=== PATIENT | male | born 1950 | race Caucasian/White ===

== ENCOUNTER 2019-10-19 10:47 | Observation (INO) ==
[2019-10-19] MEDS ORDERED: SODIUM CHLORIDE 0.9% 1000ML 1,000 ML IV ONE (11:55)
[2019-10-19 12:00] LABS: Basophils # (auto) 0.01 K/uL (0-0.2); Basophils % (auto) 0.2 %; Eosinophils # (auto) 0.04 K/uL (0-0.5); Eosinophils % (auto) 0.6 %; Hematocrit (blood only) 35.8 % (42-52); Hemoglobin 12.1 g/dL (14.0-18.0); Immature Granulocytes # (auto) 0.01 K/uL (0.00-0.02); Immature Granulocytes % (auto) 0.2 %; Lymphocytes % (auto) 15.3 %; Mean Corpuscular Hemoglobin 31.8 pg (25-34); Mean Corpuscular Hgb Conc 33.8 g/dL (32-36); Mean Platelet Volume 10.7 fL (7.4-10.4); Monocytes # (auto) 0.52 K/uL (0.11-0.59); Neutrophils # (auto) 4.96 K/uL (1.4-6.5); Neutrophils % (auto) 75.7 %; Platelet Count 164 K/uL (130-400); RDW Coefficient of Variation 13.6 % (11.5-14.5); RDW Standard Deviation 46.6 fL (36.4-46.3); Red Blood Count 3.81 M/uL (4.7-6.1); White Blood Count 6.54 K/uL (4.8-10.8)
[2019-10-19 12:17] LABS: INR 3.4 (0.9-1.1); Partial Thromboplastin Ratio 1.5; Prothrombin Time 33.6 Seconds (9.0-12.0)
[2019-10-19 12:29] LABS: Albumin Level 3.8 gm/dl (3.4-5.0); BUN Creatinine Ratio 22.5 (10-20); Est GFR (African American) 79.2; Est GFR (Non-African American) 68.3; Magnesium 2.1 mg/dl (1.8-2.4); Potassium 4.3 mmol/L (3.5-5.1)
[2019-10-19 12:39] LABS: Bilirubin,Total 0.4 mg/dl (0.2-1); Globulin 3.7 gm/dl (2.5-4.0); Thyroid Stimulating Hormone 7.83 uIu/ml (0.300-4.500); Total Protein 7.5 gm/dl (6.4-8.2)
[2019-10-19 13:22] LABS: Phosphorus 3.1 mg/dl (2.5-4.9); Troponin I < 0.015 ng/ml (0-0.045)
[2019-10-19 13:42] LABS: Appearance Urine Clear (Clear); Bilirubin Urine Negative (Negative); Blood Urine Negative (Negative); Color Urine Yellow; Glucose Urine UA Negative (Negative); Ketones Urine Negative (Negative); Leukocyte Esterase Urine Negative (Negative); Nitrite Urine Negative (Negative); Protein Urine Negative (Negative); Specific Gravity Urine 1.015 (1.000-1.030); Urobilinogen Urine Negative (Negative)
--- NOTE | 2019-10-19 14:06 | Electrocardiogram Report ---
Test Reason : Blood Pressure : / mmHG Vent. Rate : 062 BPM Atrial Rate : 062 BPM P-R Int : 170 ms QRS Dur : 092 ms QT Int : 386 ms P-R-T Axes : 065 057 035 degrees QTc Int : 391 ms Normal sinus rhythm Normal ECG When compared with ECG of 12-NOV-2011 13:51, No significant change was found Confirmed by Dio Hand ([id number]) on 10/19/2019 2:05:35 PM Referred By: Confirmed By:Dio Hand
--- NOTE | 2019-10-19 15:40 | History & Physical Report ---
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 -Completed Lovenox bridge, currently on Coumadin with INR 3.4 -Obtain CT results from [place] (3) CAD (coronary artery disease): -Appears stable, no reports of chest pain -Continue aspirin and beta-bob (4) HTN (hypertension): -BP controlled, continue quinapril, diltiazem, carvedilol (5) Hypothyroidism: -TSH 7.8, free T4 1.0 -Continue levothyroxine (6) Diet-controlled type 2 diabetes mellitus: -Hgb A1c 6.5 03/2019 (7) DVT prophylaxis: -On Coumadin with therapeutic INR History of Present Illness Chief Complaint: Near syncope Primary Care Provider: Ariel Millard MD 69-year-old male with PMH diet-controlled DM, dyslipidemia, CAD, HTN, IVC thrombosis, and other problems to below who presents the ED evaluation near syncope. Patient reports he was standing at work when suddenly everything started to go black. 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 He had another similar episode a few minutes later. Patient did not lose consciousness or fall to the ground. Patient denies associated chest pain or shortness of breath. On 10/05, patient had a routine echo ordered by cardiology that showed evidence of IVC thrombosis. Patient was started on Lovenox to Coumadin bridge. Patient reports he had a CT scan for follow-up however these results not available. Patient reports he otherwise has been feeling well recently. Denies any other recent illnesses, fevers, chills. No abdominal pain, nausea, vomiting, diarrhea. He denies any urinary symptoms. In the ED, telemetry monitoring showed some occasional PVCs. Labs are unremarkable. EKG does not show any acute ST changes. Patient was given IVF. Allergies Allergy/AdvReac Type Severity Reaction Status Date / Time No Known Allergies Allergy Unknown Verified 10/19/19 11:55 Home Medications Home Medications Medication Instructions Recorded Confirmed Type ascorbic acid (vitamin C) [Vitamin 1 g PO DAILY 10/19/19 10/19/19 History C] aspirin 81 mg PO DAILY 10/19/19 10/19/19 History buspirone 10 mg PO BID 10/19/19 10/19/19 History calcium carbonate-vitamin D3 1 tab PO DAILY 10/19/19 10/19/19 History [Os-Rafael 500 + D3] carvedilol 12.5 mg PO BID 10/19/19 10/19/19 History cyanocobalamin (vitamin B-12) 1,000 mcg PO DAILY 10/19/19 10/19/19 History [Vitamin B-12] diltiazem HCl 240 mg PO DAILY 10/19/19 10/19/19 History levothyroxine 100 mcg PO DAILY 10/19/19 10/19/19 History quinapril 40 mg PO DAILY 10/19/19 10/19/19 History warfarin 7.5 mg PO DAILY 10/19/19 10/19/19 History Past Med/Surg History Medical History (Updated 10/19/19 @ 15:38 by IAN Thao) CAD (coronary artery disease) 02/2014-[facility]REGORY to RCA Depression Diet-controlled type 2 diabetes mellitus Dyslipidemia Femur fracture History of bilateral stress femur fractures HTN (hypertension) Hypothyroidism IVC thrombosis Renal artery stenosis Surgical History H/O arthroscopy of shoulder Family History Mother Lung cancer Father Hypertension Social History Preferred Language: Surinamese Communication Ability: Effective Flat Optical Element Maker Required: No Beliefs That Will Affect Care: None Current Living Situation: Spouse and Family Feels Safe at Home: Yes Safety Concerns: Feels Safe At This Time Smoking Status: Never smoker Tobacco Type: smokeless tobacco ; Do You Dip or Chew Tobacco: Yes (2 cans/week) ; Hx Alcohol Use: Yes Alcohol type: beer Review of Systems Review of Systems: ROS per HPI, all other systems reviewed and negative Physical Exam Constitutional: WD/WN, vitals as above Eyes: PERRL, conjunctivae normal, anicteric sclerae ENMT: external ear and nose normal, oropharynx normal Respiratory: normal respiratory effort, lungs clear to auscultation Cardiovascular: Rate/Rhythm: regular rate and regular rhythm Vessels: normal peripheral pulses Extremities: no edema Gastrointestinal (Abdomen): normal bowel sounds, soft, nontender, no hepatosplenomegaly Musculoskeletal: no cyanosis or clubbing, extremities motor strength 5/5 Skin: no rashes, warm and dry Neurologic: PERRL, EOMI, accommodation nl, no face palsy, no dysarthria Psychiatric: A+Ox3, euthymic affect Results & Data Results & Data ([facility] [place]) Vital Signs (Past 12 Hours) Vital Signs Temp Pulse Resp BP Pulse Ox 10/19/19 12:38 59 L 17 127/75 98 10/19/19 12:00 98 10/19/19 11:29 71 12 117/69 98 10/19/19 11:18 36.8 C 75 18 118/78 96 Laboratory Results Short CBC 10/19/19 Range/Units 11:39 WBC 6.54 (4.8-10.8) K/uL Hgb 12.1 L (14.0-18.0) g/dL Hct 35.8 L (42-52) % Plt Count 164 (130-400) K/uL BMP 10/19/19 11:39 Sodium 137 Potassium 4.3 Chloride 104 Carbon Dioxide 27 BUN 25 H Creatinine 1.11 Glucose 105 H Calcium 9.0 Cardiac Enzymes 10/19/19 Range/Units 11:39 Troponin I < 0.015 (0-0.045) ng/ml Liver Function 10/19/19 Range/Units 11:39 Total Bilirubin 0.4 (0.2-1) mg/dl AST 18 (15-37) U/L ALT 50 (12-78) U/L Alkaline Phosphatase 57 (45-117) U/L Albumin 3.8 (3.4-5.0) gm/dl Urine 10/19/19 Range/Units 13:25 Urine Color Yellow Urine Appearance Clear (Clear) Urine pH 6.0 (4.5-7.5) Ur Specific [place] 1.015 (1.000-1.030) Urine Protein Negative (Negative) Urine Glucose (UA) Negative (Negative) Code Status & VTE Plan Code Status Patient is a full code as per my discussion with him. 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 INR therapeutic Came to ER with complaint of 2 episodes of dizzy spell lightheadedness presyncope Symptom lasted only for few seconds, then recovered completely, no loss of consciousness, patient denies of any shortness of breath chest heaviness or palpitation prior to that Physical exam: As per Chela SOSA Assessment and plan: Pre-syncope: Etiology unknown Patient will be monitored in telemetry to rule out arrhythmia Recent echocardiogram done-we will obtain report from [facility]ology IVC/inferior vena cava thrombus: Had echocardiogram done on 10/06/2019 with incidental finding of inferior vena cava thrombus And was treated with Coumadin and Lovenox bridge, has taken off Lovenox bridge on Coumadin only as INR is therapeutic INR 3.4 today Denies of any abdominal pain, no bleeding complication from therapeutic anticoagulation Patient had a CT abdomen pelvis with contrast at [facility] for evaluation of IVC (inferior vena cava thrombosis) Ordered to obtain records Please refer to further documentation by Chela SOSA for discussion of other chronic issues
[2019-10-19] MEDS ORDERED: ACETAMINOPHEN 325 MG TAB PO PRN (16:25)
--- NOTE | 2019-10-19 17:07 | Emergency Department Note ---
Impression & Plan Near syncope, NSVT (nonsustained ventricular tachycardia), CAD (coronary artery disease), On warfarin therapy ED Provider Note NAME: EVELINA ESPARZA AGE: 69 SEX: M ARRIVES VIA: Walk-In INFORMANT: Patient, ED PROVIDER(S): Jose L Hart MD CHIEF COMPLAINT: Near syncope PLAN: Disposition: Admit MEDICAL DECISION MAKING: The patient is a pleasant 69 y/o gentleman with a pmhx of CAD, HTN, hypothyroidism, IVC thrombosis on Coumadin who presents to the emergency department with two episodes of near syncope, which occurred shortly prior to arrival. 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 A second episode occurred and he was encouraged to come for evaluation. He denies prior similar episodes. Reports feeling well prior to today and denies chest pain, shortness of breath, fevers, chills, cough, congestion, n/v/d, urinary sx. On arrival the patient is in NAD, AFVSS. He appears clinically dry. He is neurologically intact. EKG without overt acute ischemia. WBC and platelets wnl. H/H 12.1/35.8 without recent values for comparison. Chemistry without acidosis. BUN/Cr > 20 c/w patient's clinically dry appearance. LFTs and electrolytes unremarkable. Troponin negative/undetectable. While the patient's near syncopal episode suggest vasovagal/orthostatic etiology, during his evaluation he did have an an episode of of 3 beat NSVT. Thus, given this in the setting of two near syncopal episodes, reasonable to a dmit for further management. Patient is agree with this. [facility] for [facility]. Triage Nursing notes reviewed and agree them. Prior medical records reviewed Vital Signs: reviewed and remarkable for no significant abnormalities Differential diagnosis: Vasovagal event, dehydration, infection, hypoglycemia, electrolyte abnormalities, cardiac sources, intracerebral event, pulmonary embolism, seizure, toxicologic, neurologic, as well as other pathologies. ER treatment provided: See below. Diagnostics interpreted by me: ECG: NSR, 62 bpm, no ectopy, no overt ST elevation or depression, QTC 391, QRS 92 Cardiac Monitoring: An order for continuous cardiac monitoring was placed and demonstrated NSR, 62 bpm, 3 beat NSVT x 1 Laboratory studies: See below Imaging studies: See below Consultation(s): Case was discussed with Dr. Orozco, [facility] hospitalist, who will evaluate the patient for admission. HPI: The patient is a pleasant 69 y/o gentleman with a pmhx of CAD, HTN, hypothyroidism, who presents to the emergency department with two episodes of near syncope, which occurred shortly prior to arrival. 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 A second episode occurred and he was encouraged to come for evaluation. He denies prior similar episodes. Reports feeling well prior to today and denies chest pain, shortness of breath, fevers, chills, cough, congestion, n/v/d, urinary sx. ROS: See above HPI for pertinent positives & negatives. A total of 10 systems reviewed and were otherwise negative. PAST MEDICAL HISTORY:See Below PAST SURGICAL HISTORY:See Below FAMILY HISTORY:See Below SOCIAL HISTORY:See Below HOME MEDICATIONS:See Below ALLERGIES:See Below VITALS:See Below PHYSICAL EXAMINATION: GENERAL: Awake, alert, fatigued-appearing, in no distress HENT: Normocephalic, atraumatic. Oropharynx with dry mucous membranes and otherwise unremarkable. EYES: Normal conjunctiva. Sclera non-icteric. EOMI. No nystamgus. PEARRL. NECK: Supple. No nuchal rigidity. FROM. No JVD. RESPIRATORY: Clear to auscultation. CARDIAC: Regular rate, normal rhythm. Extremities warm and well perfused. Pulses equal. ABDOMEN: Soft, non-distended. No tenderness to palpation. No rebound or guarding. No masses. RECTAL: Deferred. MUSCULOSKELETAL: Chest examination reveals no tenderness. The back is symmetrical on inspection without obvious abnormality. There is no CVA tenderness to palpation. No joint edema. LOWER EXTREMITIES: Calves are equal size bilaterally and non-tender. No edema. No discoloration. NEURO: Normal sensorium. No sensory or motor deficits noted. 5/5 strength and SILT x 4 extremities. Cerebellar function intact including [id number], alternating palms, [id number]. SKIN: No rash or jaundice noted. Jose L Hart MD Past Med/Surg History Medical History CAD (coronary artery disease) 02/2014-[facility] to RCA Depression Diet-controlled type 2 diabetes mellitus Dyslipidemia Femur fracture History of bilateral stress femur fractures HTN (hypertension) Hypothyroidism IVC thrombosis Renal artery stenosis Surgical History H/O arthroscopy of shoulder Family History Mother Lung cancer Father Hypertension Social History Preferred Language: Turkish Communication Ability: Effective Line Inspector Required: No Beliefs That Will Affect Care: None Current Living Situation: Spouse and Family Feels Safe at Home: Yes Safety Concerns: Feels Safe At This Time Smoking Status: Never smoker Tobacco Type: smokeless tobacco ; Do You Dip or Chew Tobacco: Yes (2 cans/week) ; Hx Alcohol Use: Yes Alcohol type: beer Allergies Allergies Allergy/AdvReac Type Severity Reaction Status Date / Time No Known Allergies Allergy Unknown Verified 10/19/19 11:55 Home Meds Home Medications Medication Instructions Recorded Confirmed ascorbic acid (vitamin C) [Vitamin 1 g PO DAILY 10/19/19 10/19/19 C] aspirin 81 mg PO DAILY 10/19/19 10/19/19 buspirone 10 mg PO BID 10/19/19 10/19/19 calcium carbonate-vitamin D3 1 tab PO DAILY 10/19/19 10/19/19 [Os-Rafael 500 + D3] carvedilol 12.5 mg PO BID 10/19/19 10/19/19 cyanocobalamin (vitamin B-12) 1,000 mcg PO DAILY 10/19/19 10/19/19 [Vitamin B-12] diltiazem HCl 240 mg PO DAILY 10/19/19 10/19/19 levothyroxine 100 mcg PO DAILY 10/19/19 10/19/19 quinapril 40 mg PO DAILY 10/19/19 10/19/19 warfarin 7.5 mg PO DAILY 10/19/19 10/19/19 Results & Data (ED) Vital Signs Vital Signs - 24 hr 10/19/19 11:18 10/19/19 11:29 10/19/19 11:31 Temperature 36.8 C Temperature Source Oral Pulse Rate - Lying 59 L Pulse Rate - Sitting 70 Pulse Rate - Standing 76 Pulse Rate 75 71 Pulse Rate from SpO2 Sensor 74 Respiratory Rate 18 12 Respiratory Effort / Characteristics Non-Labored Spontaneous Respiratory Depth Normal Respiratory Pattern Regular Blood Pressure - Lying 118/67 Blood Pressure - Sitting 117/69 Blood Pressure- Standing 108/68 Blood Pressure 118/78 117/69 Blood Pressure Mean 91 75 Blood Pressure Position Sitting Pulse Oximetry 96 98 Oxygen Delivery Method Room Air Room Air Sepsis Recent Fever Within 48 Hours No Sepsis New/Unexplained Change in Mental Status No Sepsis Action Taken by Nursing No Action Required 10/19/19 12:00 10/19/19 12:38 Temperature Temperature Source Pulse Rate - Lying Pulse Rate - Sitting Pulse Rate - Standing Pulse Rate 59 L Pulse Rate from SpO2 Sensor 59 L Respiratory Rate 17 Respiratory Effort / Characteristics Respiratory Depth Respiratory Pattern Blood Pressure - Lying Blood Pressure - Sitting Blood Pressure- Standing Blood Pressure 127/75 Blood Pressure Mean 95 Blood Pressure Position Pulse Oximetry 98 98 Oxygen Delivery Method Room Air Room Air Sepsis Recent Fever Within 48 Hours Sepsis New/Unexplained Change in Mental Status Sepsis Action Taken by Nursing Laboratory Data Attestation: I reviewed the patient's lab results. Result diagrams: 10/19/19 11:39 10/19/19 11:39 Lab Results 10/19/19 10/19/19 10/19/19 Range/Units 11:39 11:39 11:39 WBC 6.54 (4.8-10.8) K/uL RBC 3.81 L (4.7-6.1) M/uL Hgb 12.1 L (14.0-18.0) g/dL Hct 35.8 L (42-52) % MCV 94.0 (80-100) fL MCH 31.8 (25-34) pg MCHC 33.8 (32-36) g/dL RDW Std Deviation 46.6 H (36.4-46.3) fL RDW Coeff of Amado 13.6 (11.5-14.5) % Plt Count 164 (130-400) K/uL MPV 10.7 H (7.4-10.4) fL Immature Gran % (Auto) 0.2 % Neut % (Auto) 75.7 % Lymph % (Auto) 15.3 % Villalba % (Auto) 8.0 % Eos % (Auto) 0.6 % Baso % (Auto) 0.2 % Neut # (Auto) 4.96 (1.4-6.5) K/uL Lymph # (Auto) 1.00 L (1.2-3.4) K/uL Villalba # (Auto) 0.52 (0.11-0.59) K/uL Eos # (Auto) 0.04 (0-0.5) K/uL Baso # (Auto) 0.01 (0-0.2) K/uL Immature Gran # (Auto) 0.01 (0.00-0.02) K/uL PT 33.6 H (9.0-12.0) Seconds INR 3.4 H (0.9-1.1) APTT 41.0 H (21.0-31.0) Seconds PTT Ratio 1.5 Sodium 137 (136-145) mmol/L Potassium 4.3 (3.5-5.1) mmol/L Chloride 104 (98-107) mmol/L Carbon Dioxide 27 (21-32) mmol/L Anion Gap 6.0 (3-11) BUN 25 H (7-18) mg/dl Creatinine 1.11 (0.6-1.4) mg/dl Est Cr Clr Drug Dosing 75.0 ml/min Est GFR ( Amer) 79.2 Est GFR (Non-Af Amer) 68.3 BUN/Creatinine Ratio 22.5 H (10-20) Glucose 105 H (70-99) mg/dl Calcium 9.0 (8.5-10.1) mg/dl Phosphorus Magnesium 2.1 (1.8-2.4) mg/dl Total Bilirubin 0.4 (0.2-1) mg/dl AST 18 (15-37) U/L ALT 50 (12-78) U/L Alkaline Phosphatase 57 (45-117) U/L Troponin I (0-0.045) ng/ml Total Protein 7.5 (6.4-8.2) gm/dl Albumin 3.8 (3.4-5.0) gm/dl Globulin 3.7 (2.5-4.0) gm/dl Albumin/Globulin Ratio 1.0 (0.9-2) TSH 7.830 H (0.300-4.500) uIu/ml Free T4 1.00 (0.8-1.6) ng/dl Urine Color Urine Appearance (Clear) Urine pH (4.5-7.5) Ur Specific [place] (1.000-1.030) Urine Protein (Negative) Urine Glucose (UA) (Negative) Urine Ketones (Negative) Urine Blood (Negative) Urine Nitrite (Negative) Urine Bilirubin (Negative) Urine Urobilinogen (Negative) Ur Leukocyte Esterase (Negative) Hepatitis C Ab Screen (Neg) 10/19/19 10/19/19 10/19/19 Range/Units 11:39 11:39 11:39 WBC (4.8-10.8) K/uL RBC (4.7-6.1) M/uL Hgb (14.0-18.0) g/dL Hct (42-52) % MCV (80-100) fL MCH (25-34) pg MCHC (32-36) g/dL RDW Std Deviation (36.4-46.3) fL RDW Coeff of Amado (11.5-14.5) % Plt Count (130-400) K/uL MPV (7.4-10.4) fL Immature Gran % (Auto) % Neut % (Auto) % Lymph % (Auto) % Villalba % (Auto) % Eos % (Auto) % Baso % (Auto) % Neut # (Auto) (1.4-6.5) K/uL Lymph # (Auto) (1.2-3.4) K/uL [place] # (Auto) (0.11-0.59) K/uL Eos # (Auto) (0-0.5) K/uL Baso # (Auto) (0-0.2) K/uL Immature Gran # (Auto) (0.00-0.02) K/uL PT (9.0-12.0) Seconds INR (0.9-1.1) APTT (21.0-31.0) Seconds PTT Ratio Sodium (136-145) mmol/L Potassium (3.5-5.1) mmol/L Chloride (98-107) mmol/L Carbon Dioxide (21-32) mmol/L Anion Gap (3-11) BUN (7-18) mg/dl Creatinine (0.6-1.4) mg/dl Est Cr Clr Drug Dosing ml/min Est GFR ( Amer) Est GFR (Non-Af Amer) BUN/Creatinine Ratio (10-20) Glucose (70-99) mg/dl Calcium (8.5-10.1) mg/dl Phosphorus Cancelled 3.1 Magnesium (1.8-2.4) mg/dl Total Bilirubin (0.2-1) mg/dl AST (15-37) U/L ALT (12-78) U/L Alkaline Phosphatase (45-117) U/L Troponin I < 0.015 (0-0.045) ng/ml Total Protein (6.4-8.2) gm/dl Albumin (3.4-5.0) gm/dl Globulin (2.5-4.0) gm/dl Albumin/Globulin Ratio (0.9-2) TSH (0.300-4.500) uIu/ml Free T4 (0.8-1.6) ng/dl Urine Color Urine Appearance (Clear) Urine pH (4.5-7.5) Ur Specific [place] (1.000-1.030) Urine Protein (Negative) Urine Glucose (UA) (Negative) Urine Ketones (Negative) Urine Blood (Negative) Urine Nitrite (Negative) Urine Bilirubin (Negative) Urine Urobilinogen (Negative) Ur Leukocyte Esterase (Negative) Hepatitis C Ab Screen Neg (Neg) 10/19/19 Range/Units 13:25 WBC (4.8-10.8) K/uL RBC (4.7-6.1) M/uL Hgb (14.0-18.0) g/dL Hct (42-52) % MCV (80-100) fL MCH (25-34) pg MCHC (32-36) g/dL RDW Std Deviation (36.4-46.3) fL RDW Coeff of Amado (11.5-14.5) % Plt Count (130-400) K/uL MPV (7.4-10.4) fL Immature Gran % (Auto) % Neut % (Auto) % Lymph % (Auto) % Villal[place] % (Auto) % Eos % (Auto) % Baso % (Auto) % Neut # (Auto) (1.4-6.5) K/uL Lymph # (Auto) (1.2-3.4) K/uL [place] # (Auto) (0.11-0.59) K/uL Eos # (Auto) (0-0.5) K/uL Baso # (Auto) (0-0.2) K/uL Immature Gran # (Auto) (0.00-0.02) K/uL PT (9.0-12.0) Seconds INR (0.9-1.1) APTT (21.0-31.0) Seconds PTT Ratio Sodium (136-145) mmol/L Potassium (3.5-5.1) mmol/L Chloride (98-107) mmol/L Carbon Dioxide (21-32) mmol/L Anion Gap (3-11) BUN (7-18) mg/dl Creatinine (0.6-1.4) mg/dl Est Cr Clr Drug Dosing ml/min Est GFR ( Amer) Est GFR (Non-Af Amer) BUN/Creatinine Ratio (10-20) Glucose (70-99) mg/dl Calcium (8.5-10.1) mg/dl Phosphorus Magnesium (1.8-2.4) mg/dl Total Bilirubin (0.2-1) mg/dl AST (15-37) U/L ALT (12-78) U/L Alkaline Phosphatase (45-117) U/L Troponin I (0-0.045) ng/ml Total Protein (6.4-8.2) gm/dl Albumin (3.4-5.0) gm/dl Globulin (2.5-4.0) gm/dl Albumin/Globulin Ratio (0.9-2) TSH (0.300-4.500) uIu/ml Free T4 (0.8-1.6) ng/dl Urine Color Yellow Urine Appearance Clear (Clear) Urine pH 6.0 (4.5-7.5) Ur Specific [place] 1.015 (1.000-1.030) Urine Protein Negative (Negative) Urine Glucose (UA) Negative (Negative) Urine Ketones Negative (Negative) Urine Blood Negative (Negative) Urine Nitrite Negative (Negative) Urine Bilirubin Negative (Negative) Urine Urobilinogen Negative (Negative) Ur Leukocyte Esterase Negative (Negative) Hepatitis C Ab Screen (Neg) Administered Medications Buspirone HCl (Buspar) 10 mg PO BID ROLANDO Stop: 11/18/19 20:59 Last Admin: 10/19/19 20:47 Dose: 10 mg Documented by: [id number] Carvedilol (Coreg) 12.5 mg PO BID ROLANDO Stop: 11/18/19 20:59 Last Admin: 10/19/19 20:46 Dose: 12.5 mg Documented by: [id number] Discontinued Medications Sodium Chloride (Nss 1000ml) 1,000 mls @ 999 mls/hr IV .[id number] ONE Stop: 10/19/19 12:55 Last Infusion: 10/19/19 13:24 Dose: 0 mls/hr Documented by: [id number] Admin: 10/19/19 12:36 Dose: 999 mls/hr Documented by: [id number] Blood Pressure Blood Pressure Findings: Normal blood pressure Discharge Plan Visit Data *Final* Discharge Date/Time: 10/19/19 16:03 Chief Complaint: Syncope (Near Syncope) Stated Complaint: ALMOST PASSED OUT TWICE, NOT FEELING WELL ED Provider: Jose L Hart Discharge Problem: Near syncope, NSVT (nonsustained ventricular tachycardia), CAD (coronary artery disease), On warfarin therapy Patient Disposition: Admitted As Inpatient Discharge Instructions Interventions: ED Discharge Assessment Last Done: 10/19/19 16:03
[2019-10-19] MEDS: carvediloL 12.5 MG TAB PO SCH (20:46)
[2019-10-20] MEDS ORDERED: LEVOTHYROXINE SODIUM 100 MCG TABLET PO SCH (06:30)
[2019-10-20 06:31] LABS: Hematocrit (blood only) 36.6 % (42-52); Hemoglobin 11.6 g/dL (14.0-18.0); Mean Corpuscular Hemoglobin 30.5 pg (25-34); Mean Corpuscular Hgb Conc 31.7 g/dL (32-36); Mean Corpuscular Volume 96.3 fL (80-100); Mean Platelet Volume 10.4 fL (7.4-10.4); Platelet Count 162 K/uL (130-400); RDW Coefficient of Variation 13.5 % (11.5-14.5); RDW Standard Deviation 47.5 fL (36.4-46.3); White Blood Count 5.05 K/uL (4.8-10.8)
[2019-10-20 06:49] LABS: INR 3.6 (0.9-1.1); Prothrombin Time 35.9 Seconds (9.0-12.0)
[2019-10-20 07:09] LABS: Calcium 8.7 mg/dl (8.5-10.1); Creatinine Clr Calc Pharmacy 73.5 ml/min; Est GFR (African American) 77.5; Est GFR (Non-African American) 66.9; Potassium 3.9 mmol/L (3.5-5.1)
[2019-10-20] MEDS ORDERED: ASPIRIN 81 MG ECTAB PO SCH (09:00)
[2019-10-20] MEDS ORDERED: ENALAPRIL MALEATE 10 MG TAB PO SCH (09:00)
[2019-10-20] MEDS ORDERED: dilTIAZem HCL 240 MG CAPCR PO SCH (09:00)
[2019-10-20] MEDS: carvediloL 12.5 MG TAB PO SCH (09:06)
--- NOTE | 2019-10-20 09:41 | Hospitalist Progress Note ---
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 No loss of consciousness -as per 10/19/2019 admitting notes "In the ED, patient had some occasional PVCs noted on monitoring and evaluation advisor, Initial troponin negative, EKG without acute ST changes, Patient is hemodynamically stable, Recent echo on : EF 55 to 60%, mild tricuspid regurgitation, evidence of IVC thrombosis -Overall patient had 3 negative troponins. He reported felt better by 1 PM yesterday while in the hospital. 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 patient is recommended to hold coumadin on 10/20/2019. Discharge with coumadin dosing reduced from 7.5 mg daily to be used as 7 mg daily starting on 10/21/2019. Medication [place] [address] [id number] upcoming appointments 10/21/2019 8:30 AM Provider Taylor Warner [facility] Department Pharmacy, [facility] 10/27/2019 11:[address] Irving Isabel Department Internal Medicine [facility] 11/07/2019 9:30 AM Provider Sarah Rodriguez PA-C Department Internal Medicine [facility] 12/19/2019 7:30 AM Provider Kimberley Arellano PA-C Department Rheumatology [facility] 08/07/2020 9:00 AM Provider IAN Davies Department Pulmonary Medicine, [facility] Discharge Diagnosis Near syncope IVC thrombosis Anticoagulated by coumadin therapy with supratherapeutic INR HTN (hypertension) History of Coronary artery Disease Admission and Anticipated Discharge Date Admission Date: October 19, 2019 Subjective -Overall patient had 3 negative troponins. He reported felt better by 1 PM yesterday while in the hospital. No acute telemetry events on medical telemetry other than some asymptomatic sinus bradycardia no chest pain. no shortness of breath. no dizziness. no headache. ambulating. no abdomen pain. no nausea. no vomiting Review of Systems Review of Systems: All systems reviewed & are unremarkable except as noted in Subjective Physical Exam Constitutional: WD/WN, vitals as above Eyes: PERRL, conjunctivae normal, anicteric sclerae EOM intact bilaterally ENMT: external ear and nose normal, oropharynx normal Neck: trachea midline, no thyromegaly normal visual inspection Respiratory: normal respiratory effort, lungs clear to auscultation normal respiratory effort Cardiovascular: Rate/Rhythm: regular rhythm and + bradycardic Gastrointestinal (Abdomen): normal bowel sounds, soft, nontender, no hepatosplenomegaly Musculoskeletal: Head/Neck/Chest: normocephalic and head atraumatic Neurologic: PERRL, EOMI, accommodation nl, no face palsy, no dysarthria CN's II-XI intact bilaterally Psychiatric: A+Ox3, euthymic affect Results & Data Results & Data ([facility]) Vital Signs (Past 12 Hours) Vital Signs Temp Pulse Pulse Resp BP Pulse Ox 10/20/19 06:38 36.8 C 64 17 121/79 100 10/20/19 03:54 36.5 C 67 19 120/75 96 10/20/19 00:34 56 L 10/19/19 23:29 36.5 C 56 L 19 104/64 97
--- NOTE | 2019-10-20 09:47 | Discharge Summary ---
Date of Service October 20, 2019 Admission HPI Per Admitting Provider 69-year-old male with PMH diet-controlled DM, dyslipidemia, CAD, HTN, IVC thrombosis, and other problems to below who presents the ED evaluation near syncope. Patient reports he was standing at work when suddenly everything started to go black. 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 He had another similar episode a few minutes later. Patient did not lose consciousness or fall to the ground. Patient denies associated chest pain or shortness of breath. On 10/05, patient had a routine echo ordered by cardiology that showed evidence of IVC thrombosis. Patient was started on Lovenox to Coumadin bridge. Patient reports he had a CT scan for follow-up however these results not available. Patient reports he otherwise has been feeling well recently. Denies any other recent illnesses, fevers, chills. No abdominal pain, nausea, vomiting, diarrhea. He denies any urinary symptoms. In the ED, telemetry monitoring showed some occasional PVCs. Labs are unremarkable. EKG does not show any acute ST changes. Patient was given IVF. Principal Diagnosis Near syncope IVC thrombosis Anticoagulated by coumadin therapy with supratherapeutic INR HTN (hypertension) History of Coronary artery Disease Discharge Exam Constitutional WD/WN, vitals as above Eyes PERRL, conjunctivae normal, anicteric sclerae EOM intact bilaterally ENMT external ear and nose normal, oropharynx normal Neck trachea midline, no thyromegaly normal visual inspection Respiratory normal respiratory effort, lungs clear to auscultation normal respiratory effort Cardiovascular Rate/Rhythm: regular rhythm and + bradycardic Gastrointestinal (Abdomen) normal bowel sounds, soft, nontender, no hepatosplenomegaly Musculoskeletal Head/Neck/Chest: normocephalic and head atraumatic Neurologic PERRL, EOMI, accommodation nl, no face palsy, no dysarthria CN's II-XI intact bilaterally Psychiatric A+Ox3, euthymic affect Discharge Data Allergies Allergy/AdvReac Type Severity Reaction Status Date / Time No Known Allergies Allergy Unknown Verified 10/19/19 11:55 Consultations 10/19/19 14:17 ED Decision to Admit Stat Hospital Course (1) Near syncope: -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 No loss of consciousness -as per 10/19/2019 admitting notes "In the ED, patient had some occasional PVCs noted on monitoring coordinator, Initial troponin negative, EKG without acute ST changes, Patient is hemodynamically stable, Recent echo on : EF 55 to 60%, mild tricuspid regurgitation, evidence of IVC thrombosis -Overall patient had 3 negative troponins. He reported felt better by 1 PM yesterday while in the hospital. 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 at [place] -Completed Lovenox bridge prior to this hospitalization and currently on coumadin alone for treatment of preventing more thrombosis (3) CAD (coronary artery disease): -Appears stable, no reports of chest pain -Continue aspirin and beta-bob (4) HTN (hypertension): -BP controlled, continue quinapril, diltiazem, carvedilol (5) Hypothyroidism: -TSH 7.8, free T4 1.0 -Continue levothyroxine (6) Diet-controlled type 2 diabetes mellitus: -Hgb A1c 6.5 03/2019 (7) DVT prophylaxis: Anticoagulated by coumadin therapy with supratherapeutic INR -admission INR 3.2 on 10/19/2019, INR is 3.6 on 10/20/2019. patient is recommended to hold coumadin on 10/20/2019. Discharge with coumadin dosing reduced from 7.5 mg daily to be used as 7 mg daily starting on 10/21/2019. Medication change sent electronically to [address], [place] [id number] upcoming appointments 10/21/2019 8:30 AM Provider [facility] Department Pharmacy, [facility] 10/27/2019 11:[address] Irving Isabel Department Internal Medicine [place] 11/07/2019 9:30 AM Provider Sarah Rodriguez PA-C Department Internal Medicine [place] 12/19/2019 7:30 AM Provider Kimberley Arellano PA-C Department Rheumatology [place] 08/07/2020 9:00 AM Provider IAN Davies Department Pulmonary Medicine, [facility] Discharge Diagnosis Near syncope IVC thrombosis Anticoagulated by coumadin therapy with supratherapeutic INR HTN (hypertension) History of Coronary artery Disease Total Time Total Time Spent Total Time Spent (In Minutes): 40 minutes Total Time Includes: Examination of the Patient, Discharge Planning, Medication Reconciliation and Communication With Other Providers Discharge Plan Discharge Items Patient Disposition: Home - Self-Care Reason For Visit: NEAR SYNCOPE Discharge Diagnosis: Near syncope IVC thrombosis Anticoagulated by coumadin therapy with supratherapeutic INR HTN (hypertension) History of Coronary artery Disease Condition on Discharge: Good Activity: Resume your previous activity Non-emergency contact: Primary Care Provider Call non-emergency contact if: you have any medication questions Follow-up/Referrals: Ariel Millard MD [Primary Care Provider] - Diet: Heart Healthy Addtl Attending Provider Instructions: admission INR 3.2 on 10/19/2019, INR is 3.6 on 10/20/2019. patient is recommended to hold coumadin on 10/20/2019. Discharge with coumadin dosing reduced from 7.5 mg daily to be used as 7 mg daily starting on 10/21/2019. Med[address], [place] [id number] upcoming appointments 10/21/2019 8:30 AM Provider [facility] Timmy Kaiser [facility] Department Pharmacy, [facility] 10/27/2019 11:[address] Irving Isabel Department Internal Medicine [place] 11/07/2019 9:30 AM Provider Sarah Rodriguez PA-C Department Internal Medicine [place] 12/19/2019 7:30 AM Provider Kmiberley Arellano PA-C Department Rheumatology [place] 08/07/2020 9:00 AM Provider IAN Davies Department Pulmonary Medicine, [facility] Pending Studies at Discharge: No Stand-Alone Forms: My [employer]folio, Smoking Cessation Medications and DC Order Prescriptions: New warfarin 4 mg tablet 7 mg PO DAILY 30 Days Qty: 52.5 RF: 0 Continued ascorbic acid (vitamin C) [Vitamin C] 1,000 mg Tablet 1 g PO DAILY RF: 0 carvedilol 12.5 mg tablet 12.5 mg PO BID RF: 0 diltiazem HCl 240 mg capsule,extended release 24hr 240 mg PO DAILY RF: 0 cyanocobalamin (vitamin B-12) [Vitamin B-12] 1,000 mcg Tablet 1,000 mcg PO DAILY RF: 0 aspirin 81 mg Tablet,Delayed Release (Dr/Ec) 81 mg PO DAILY RF: 0 quinapril 40 mg tablet 40 mg PO DAILY RF: 0 buspirone 10 mg tablet 10 mg PO BID RF: 0 calcium carbonate-vitamin D3 [Os-Rafael 500 + D3] 500 mg(1,250mg) -200 unit Tablet 1 tab PO DAILY RF: 0 levothyroxine 100 mcg tablet 100 mcg PO DAILY RF: 0 Discontinued warfarin 5 mg tablet 7.5 mg PO DAILY RF: 0 Discharge Orders: Discharge Order (Routine); Ordered 10/20/19 Ordered By: Griffin Herron Admission Data Admit Date/Time: 10/19/19 14:41 Attending Provider: Griffin Herron Admit Provider: Rocio Orozco Primary Care Provider: Ariel Millard Other Providers: Rocio Orozco
[2019-10-20] MEDS ORDERED: WARFARIN SOD 7.5 MG TAB PO SCH (16:00)
--- NOTE | 2019-10-20 21:40 | Electrocardiogram Report ---
Test Reason : Blood Pressure : / mmHG Vent. Rate : 059 BPM Atrial Rate : 059 BPM P-R Int : 186 ms QRS Dur : 094 ms QT Int : 412 ms P-R-T Axes : 073 072 053 degrees QTc Int : 407 ms Sinus bradycardia Otherwise normal ECG When compared with ECG of 19-OCT-2019 11:26, No significant change was found Confirmed by Anuj Garcia ([id number]) on 10/20/2019 9:40:11 PM Referred By: REFERRED SELF Confirmed By:Anuj Garcia
== END 2019-10-20 12:15 | disposition home or self-care (01) ==
LOC: 2W 10:47 → ED 10:47 → SUATTDRO 14:41 → 2W 16:03

== ENCOUNTER 2020-02-02 05:18 | Inpatient (IN) ==
--- NOTE | 2020-01-16 12:47 | PAT Medication Instructions ---
Medication Instructions Date of Service January 16, 2020 Home Medications ascorbic acid (vitamin C) [Vitamin C] 1 g PO QAM aspirin 81 mg PO QAM buspirone 10 mg PO BID calcium carbonate-vitamin D3 [Os-Rafael 500 + D3] 1 tab PO QAM carvedilol 12.5 mg PO BID cyanocobalamin (vitamin B-12) [Vitamin B-12] 1,000 mcg PO QAM diltiazem HCl 240 mg PO QAM levothyroxine 100 mcg PO QAM quinapril 40 mg PO QAM warfarin 7.5 mg PO 3XWK warfarin 10 mg PO 4XWK ASK your prescriber and surgeon aspirin 81 mg PO QAM warfarin 7.5 mg PO 3XWK warfarin 10 mg PO 4XWK DO NOT take the morning of surgery ascorbic acid (vitamin C) [Vitamin C] 1 g PO QAM calcium carbonate-vitamin D3 [Os-Rafael 500 + D3] 1 tab PO QAM cyanocobalamin (vitamin B-12) [Vitamin B-12] 1,000 mcg PO QAM quinapril 40 mg PO QAM Take morning of surgery With a small sip of water, OTHERWISE NOTHING TO EAT OR DRINK AFTER MIDNIGHT: buspirone 10 mg PO BID carvedilol 12.5 mg PO BID diltiazem HCl 240 mg PO QAM levothyroxine 100 mcg PO QAM Take evening before surgery buspirone 10 mg PO BID carvedilol 12.5 mg PO BID Other Notes If you have any questions please call us at [phone] or [phone] or [phone] or [phone]
--- NOTE | 2020-01-17 15:41 | Anesthesiology Consultation ---
Date of Service January 17, 2020 Assessment & Plan (1) Encounter for pre-operative examination: - Awaiting most recent cardiology office visit note ([facility]). - Per assessment on 01/16: Travel screen- Lives in [place]. Works in [employer]. Patient states that he will be traveling with family to [place] 01/20. Patient states that he will strictly follow COVID precaution guidelines, wear mask, + social distance, avoid large crowds. He states that he will contact surgeon's office if unable to follow COVID precaution guidelines during travel. No known COVID-19 positive contacts or current COVID-19 related symptoms. Surgeon arranging preop COVID testing. Awaiting results. - Check coags AM DOS Chart Review Chart Review: Patient seen in Pre Admission Testing Teaching & Discussion Pre-Anesthesia Teaching/Discussion Notes: Instructed NPO after midnight before surgery,except medications with 15 cc of water. Medication instructions provided according to the PAT guidelines. History Surgery Operation Date: 02/02/20 07:30 Proposed Procedures p Robotic Left Laparoscopic Partial Nephrectomy, Possible Radical Left Nephrectomy - Valentín Zuñiga DO Height/Weight Height: 5 ft 11 in Weight: 97.5 kg Allergies Allergy/AdvReac Type Severity Reaction Status Date / Time No Known Allergies Allergy Unknown Verified 01/16/20 11:58 Medications Home Medications Medication Instructions Recorded Confirmed Last Taken ascorbic acid (vitamin C) [Vitamin 1 g PO QAM 10/19/19 01/16/20 Unknown C] aspirin 81 mg PO QAM 10/19/19 01/16/20 Unknown buspirone 10 mg PO BID 10/19/19 01/16/20 Unknown calcium carbonate-vitamin D3 1 tab PO QAM 10/19/19 01/16/20 Unknown [Os-Rafael 500 + D3] carvedilol 12.5 mg PO BID 10/19/19 01/16/20 Unknown cyanocobalamin (vitamin B-12) 1,000 mcg PO QAM 10/19/19 01/16/20 Unknown [Vitamin B-12] diltiazem HCl 240 mg PO QAM 10/19/19 01/16/20 Unknown levothyroxine 100 mcg PO QAM 10/19/19 01/16/20 Unknown quinapril 40 mg PO QAM 10/19/19 01/16/20 Unknown warfarin 7.5 mg PO 3XWK 01/16/20 01/16/20 Unknown warfarin 10 mg PO 4XWK 01/16/20 01/16/20 Unknown Past Medical History Medical History (Updated 01/17/20 @ 16:11 by Augusta Barth) Anxiety and depression CAD (coronary artery disease) 02/2014-[facility] to RCA Dyslipidemia History of asthma as child History of thrombosis of vena cava IVC thombosis- on warfarin HTN (hypertension) Hx of lymphoma Hx of testicular cancer Hypothyroidism Migraine Myocardial Infarction 2013 Osteoarthritis Prediabetes Renal artery stenosis Renal cyst left Sleep apnea CPAP Exercise / Class Metabolic Activity II 4-5 Yardwork/Stairs/Walk up hill (one flight of stairs (no chest pain, no sob)) Past Family History Family History Mother Lung cancer Father Hypertension Past Surgical History Surgical History (Updated 01/17/20 @ 16:00 by Augusta Barth) H/O arthroscopy of shoulder right H/O hand surgery right hand (3rd/4th digit) partial amputation History of cataract surgery R/T History of colonoscopy History of heart artery stent stent x1 (2013) History of open reduction and internal fixation (ORIF) procedure R/L FEMUR History of orchiectomy LEFT Past Anesthesia History No Hx of Anesthesia Complications and No Family Hx of Anesthesia Complications History of PONV No Hx of PONV and Hx of Motion Sickness (+ boats/fishing) Social History Smoking Status: Never smoker tobacco type: smokeless tobacco Do You Dip or Chew Tobacco: Yes (1 can/week- advised NPO AM DOS) Hx Alcohol Use: Yes Alcohol type: beer alcohol intake frequency: holidays/special occasions only Hx Substance Use: No substance use type: does not use Review of Systems Patient denies chest pain, shortness of breath, dyspnea on exertion, fever, chills, cough, wheezing, palpitations. Physical Exam Vital Signs VITALS BP 142/83 P 57 TEMP 98.0 SP02 95%RA RESP 16 PHYSICAL Full neck and c-spine range of motion. Full TMJ range of motion. TMD 3 finger breaths Mallampati Score 2 Dentition: several missing (sides/molars) Lungs: clear throughout to auscultation Cardiac: regular rate and rhythm, no murmurs noted Spine: normal Carotid arteries: negative bruit Extremities: 3rd/4th digit right hand partial amputation Testing Laboratory Results 01/17/20 15:57 01/17/20 15:57 Urine Color Yellow 01/17/20 15:57 Urine Appearance Clear (Clear) 01/17/20 15:57 Urine pH 6.0 (4.5-7.5) 01/17/20 15:57 Ur Specific [place] 1.011 (1.000-1.030) 01/17/20 15:57 Urine Protein Negative (Negative) 01/17/20 15:57 Urine Glucose (UA) Negative (Negative) 01/17/20 15:57 Urine Ketones Negative (Negative) 01/17/20 15:57 Urine Nitrite Negative (Negative) 01/17/20 15:57 Ur Leukocyte Esterase Negative (Negative) 01/17/20 15:57 Blood Type O Positive 01/17/20 15:57 Antibody Screen NEGATIVE 01/17/20 15:57 Electrocardiogram Date: 10/20/19 Findings: + SB @ (59) Echocardiogram Date: 10/06/19 EF 55-60%. No RWMA. Mild TR. ECHO density within the IVC adjacent the hepatic vein that does not appear to be artifact, possible thrombus versus mass. Other Testing Chest CTA: 05/03/19: No evidence of aortic dissection or aneurysm. Normal pulmonary artery segments. Cardiomegaly without CHF. 2 minor old compression fractures of the T-spine. No acute pathology of the chest.
[2020-01-17 16:30] LABS: Basophils # (auto) 0.02 K/uL (0-0.2); Basophils % (auto) 0.3 %; Eosinophils # (auto) 0.05 K/uL (0-0.5); Eosinophils % (auto) 0.8 %; Hematocrit (blood only) 38.8 % (42-52); Hemoglobin 12.5 g/dL (14.0-18.0); Lymphocytes # (auto) 1.48 K/uL (1.2-3.4); Lymphocytes % (auto) 24.5 %; Mean Corpuscular Hemoglobin 30.7 pg (25-34); Mean Corpuscular Hgb Conc 32.2 g/dL (32-36); Mean Corpuscular Volume 95.3 fL (80-100); Mean Platelet Volume 10.4 fL (7.4-10.4); Monocytes # (auto) 0.41 K/uL (0.11-0.59); Monocytes % (auto) 6.8 %; Neutrophils # (auto) 4.09 K/uL (1.4-6.5); Neutrophils % (auto) 67.6 %; Platelet Count 184 K/uL (130-400); RDW Coefficient of Variation 12.7 % (11.5-14.5); RDW Standard Deviation 44.1 fL (36.4-46.3); Red Blood Count 4.07 M/uL (4.7-6.1); White Blood Count 6.05 K/uL (4.8-10.8)
[2020-01-17 16:38] LABS: BUN Creatinine Ratio 14.3 (10-20); Calcium 9.5 mg/dl (8.5-10.1); Creatinine Clr Calc Pharmacy 66.7 ml/min; Est GFR (African American) 66.7; Est GFR (Non-African American) 57.5; Potassium 4.4 mmol/L (3.5-5.1)
[2020-01-17 18:55] LABS: Appearance Urine Clear (Clear); Bilirubin Urine Negative (Negative); Blood Urine Negative (Negative); Color Urine Yellow; Glucose Urine UA Negative (Negative); Ketones Urine Negative (Negative); Leukocyte Esterase Urine Negative (Negative); Nitrite Urine Negative (Negative); Protein Urine Negative (Negative); Specific Gravity Urine 1.011 (1.000-1.030); Urobilinogen Urine Negative (Negative)
[2020-01-27 21:28] LABS: SARS CoV2 RNA (COVID-19) NOT DETECTED (NOT DETECTED)
[2020-02-02] MEDS ORDERED: ceFAZolin 2000MG 2,000 MG/15 ML SYR IV SCH (06:00)
[2020-02-02] MEDS ORDERED: LR 15ML/HR IV SCH ×2 (06:00)
[2020-02-02] MEDS ORDERED: HEPARIN SOD 5,000 UNIT/0.5 ML VIAL SQ SCH (06:00)
[2020-02-02 06:09] LABS: INR 1.1 (0.9-1.1); Prothrombin Time 11.6 Seconds (9.0-12.0)
[2020-02-02] MEDS ORDERED: SODIUM CHLORIDE 0.9% 10ML FLUSH IV ONE (06:59)
[2020-02-02] MEDS ORDERED: SODIUM BICARB 8.4% INJ 50 MEQ/50 ML SYR IV ONE (06:59)
[2020-02-02] MEDS ORDERED: CALCIUM CHLORIDE 10% 10 ML SYR IV ONE (06:59)
[2020-02-02] MEDS ORDERED: ADENOSINE IV SOLN 3 MG/ML 2 ML VIAL IV ONE (06:59)
[2020-02-02] MEDS ORDERED: NALOXONE HCL 0.4 MG/1 ML VIAL/CARP IV ONE (06:59)
[2020-02-02] MEDS ORDERED: BUPIVACAINE 0.5 % 5 MG/1 ML MPF 30ML VIAL ONE (07:00)
--- NOTE | 2020-02-02 07:10 | History & Physical Bridge Note ---
Date of Service February 02, 2020 History & Physical Bridge Note I have examined the patient, reviewed the History & Physical and in the interval since the performance of the History & Physical I have noted the following changes of clinical significance: no changes noted
[2020-02-02] MEDS ORDERED: GLYCOPYRROLATE 0.2 MG/ML VIAL ONE (07:13)
[2020-02-02] MEDS ORDERED: PROPOFOL IV EMULSION 10 MG/ML 20 ML VIAL IV ONE (07:13)
[2020-02-02] MEDS ORDERED: ROCURONIUM BROMIDE 10 MG/ML 5 ML VIAL IV ONE ×2 (07:13→08:36)
[2020-02-02] MEDS ORDERED: NEOSTIGMINE METHYLSULFATE 5 MG/5 ML SYR ONE (07:13)
[2020-02-02] MEDS ORDERED: ONDANSETRON INJ 2 MG/ML 2 ML VIAL ONE (07:13)
[2020-02-02] MEDS ORDERED: LIDOCAINE HCL 2% 2 ML VIAL/AMP(20MG/ML) INFIL ONE (07:13)
[2020-02-02] MEDS ORDERED: MIDAZOLAM HCL 1 MG/ML 2ML VIAL ONE (07:14)
[2020-02-02] MEDS ORDERED: fentaNYL citrate 100 MCG/2 ML VIAL ONE (07:14)
[2020-02-02] MEDS ORDERED: HYDROmorphone INJ 2 MG/ML SYR/VIAL IV PRN (07:28)
[2020-02-02] MEDS ORDERED: fentaNYL citrate 100 MCG/2 ML VIAL IV PRN (07:28)
[2020-02-02] MEDS ORDERED: ATROPINE SULFATE 0.1 MG/ML 10ML SYR IV PRN (07:28)
[2020-02-02] MEDS ORDERED: ONDANSETRON INJ 2 MG/ML 2 ML VIAL IV PRN ×2 (07:28→13:36)
[2020-02-02] MEDS ORDERED: ePHEDrine sulfate 50 MG/ML AMP IV PRN (07:28)
[2020-02-02] MEDS ORDERED: METOCLOPRAMIDE HCL INJ 5 MG/ML 2 ML VIAL IV PRN (07:28)
[2020-02-02] MEDS ORDERED: PROMETHAZINE HCL 12.5 MG in SODIUM CHLORIDE 0.9% 50 ML IV PRN (07:28)
[2020-02-02] MEDS ORDERED: HYDROmorphone INJ 2 MG/ML SYR/VIAL ONE (08:36)
--- NOTE | 2020-02-02 11:35 | Post Operative Brief Note ---
PG Immediate Post Op with CF Date of Surgery February 02, 2020 Pre & Post Diagnosis Operation Date: 02/02/20 07:30 Pre-Op Diagnosis: Left Renal Mass Post-Op Diagnosis: Left Renal Mass I identified the patient and participated in the time-out.: Yes Procedure Operation Date: 02/02/20 07:30 Actual Procedures p Robotic Left Laparoscopic Partial Nephrectomy(Left) - Valentín Zuñiga DO Surgeon Valentín Zuñiga, II, DO Air Support Operations Operator Maryann Estimated Blood Loss 100 Findings Consistent with Post-Op Diagnosis Specimens Specimen Description: A. Left renal mass Drains Wade Catheter and Ian-Alegria Drain Anesthesia Type General Complications none Disposition Disposition: Recovery Room Overlapping Procedure I was present for: the critical portions of procedure. I was immediately available: during the entire case. Back up surgeon: used during listed procedure.
--- NOTE | 2020-02-02 12:11 | Operative Report ---
PG Post Operative Report Pre & Post Diagnosis Operation Date: 02/02/20 07:30 Pre-Op Diagnosis: Left Renal Mass Post-Op Diagnosis: Left Renal Mass I identified the patient and participated in the time-out.: Yes Procedure Operation Date: 02/02/20 07:30 Actual Procedures p Robotic Left Laparoscopic Partial Nephrectomy(Left) - Valentín Zuñiga DO Surgeon Valentín Zuñiga, II, DO Cardiac Care Nurse Maryann Estimated Blood Loss 100 Findings Consistent with Post-Op Diagnosis Upper pole renal mass on left with solid and cystic lesion Specimens Renal mass. Drains 18 Fr Wade catheter. Flat HENRRY Drain Anesthesia Type General Complications none Disposition Disposition: Recovery Room Indications Patient with enhancing left renal mass. Risk and benefits were discussed at length. Patient elected to undergo robotic assisted laparoscopic partial nephrectomy. Description of Procedure The patient was brought to the operative suite and placed under general endotracheal intubation anesthesia in the supine position. The patient was transferred to the lateral position with the operative side up. At this point, the patient prepped and draped in the usual sterile fashion and a timeout was completed. Preoperative antibiotics of Ancef 2 grams had been given. PEYTON's and SCD's were placed on the patient's lower extremities. A catheter was placed using sterile technique. With the time out completed the patient was flexed and the skin was marked. The lateral camera port site was anesthetized. A small incision was made into the skin and subcutaneous tissues. A Varess needle was selected and placed. The needle was easily moved and it was irrigated and aspirated without any issues or concerns for placement. Insufflation commenced. Once insufflated, A camera port was placed. The cavity was insufflated to 12-15 mmHG. A laparoscopic camera was placed and the abdominal cavity inspected. No bleeding, injury, or other concerning features were noted. At this point, the skin was marked for port placement and 8mm working ports were placed. The skin was anesthetized down to fascia and an approx 1cm incision was made to place the 2 x 8mm ports. Two medical record assistant ports were also placed in similar fashion under direct visualization. The robot was positioned and docked. The camera was placed and all trocars were positioned under direct visualization. Ida SOSA was integral in port placement, camera utilization, and docking procedure. She remained in sterile attire and then proceeded to assist the remainder of the case. Dr. Felipe Wade was readily available for assistance during lin portions of the proceeding procedure. Dr. Wade assumed the nurse first assist role for the major portion of mass removal, vessel clamping, and closure of the kidney. At this point, I transitioned to the robotic console. The colon was mobilized medially to expose the retroperitoneum and the area assessed. Adhesions were freed to allow mobilization. A small amount of adhesions were noted from the colon and were freed. These were dissected with blunt technique. Cautery was used to assist dissection and control bleeding. The retroperitoneal fat was assessed. The ureter and gonadal vein were identified. The ureter was isolated and dissection was taken superiorly. This was followed to the renal pelvis. The Renal Artery and Vein were then cleaned and exposed. Clamp placement was assessed and good access was achieved. The perirenal fat anterior to the kidney was then dissected. The mass and surrounding tissues were exposed. The kidney was then further mobilized. The ultrasound probe was placed and the mass further examined. The edges were marked. During dissection, the large cystic lesion began to leak fluid. This was then fully drained and allowed considerable better mobility and access to the renal mass. The Vessels were assessed a final time. 2 x Bulldog clamps were placed on the artery and 1 x Bulldog clamp on the vein. The kidney appropriately blanched. The previously marked margins were used to start the incision into the kidney. The mass was completely excised without evidence of penetrating into the capsule of the mass. The base of resection bed was assessed and small vessels were cauterized. The collecting system did appear to be opened in a small area. A barbed suture was selected and the nephrotomy closed. Care was taken to close the collecting system opening. 3-0 Vicryl sutures were then used to close the edges of the elliptical opening. A total of 3 vicryl sutures were used to close and bolster the edges. At this point, the bulldog clamps were removed. Warm ischemia time, in total, was less than 20 minutes. The kidney was full assessed after removal of clamps. No bleeding or other major areas of concern. Weck and Hemolock clips were used to bolster and tightened to approximate the edges. Surgicel hemostatic agent sheets were placed under the liver and on the incised edge. Hemostatic agents were also placed. Hemostatic agent was also placed on the vessels. No major bleeding or other issues. Gerota's tissues were replaced utilizing clips to cover the area. The excised mass was placed in an endocatch bag for removal. The entire dissection space was inspected one final time. No bleeding or injuries or areas of concern were noted. No tumor or other concerning features were noted. At this point, the robot was undocked and moved away from the patient. The port sites were all assessed laparoscopically. The endoscopic bag was moved into the lower medical record assistant port. A Flat HENRRY drain was placed into the lateral camera port. This was removed and the drain was secured and set to suction. The other ports were assessed and no issues observed. The two medical record assistant port sites were then oped and connected. This was opened further exposing fascia which was then opened in order to removed the mass within the bag. A running 1-0 Vicryl suture was used to close the posterior rectus sheath fascia. A running 1-0 PDS suture was used to close the anterior rectus sheath. The skin at each site was closed with a stapling device. The patient was cleaned and bandaged. The patient was moved back into the supine position The patient was cleaned, aroused from anesthesia, and transferred to the pacu in stable condition having tolerated the procedure well with no complications. I was present and participated in all aspects of the procedure. Felipe Wade MD was integral in the major portion of the procedure as above. IAN Kaye was critical in the portions as mentioned above. Will plan to observe postoperatively and monitor. Wade to be removed in the morning. I attest to the content of the Intraoperative Record and any orders documented therein. Any exceptions are noted below.
[2020-02-02 12:21] LABS: Basophils # (auto) 0.02 K/uL (0-0.2); Basophils % (auto) 0.2 %; Eosinophils # (auto) 0.01 K/uL (0-0.5); Eosinophils % (auto) 0.1 %; Hemoglobin 11.3 g/dL (14.0-18.0); Immature Granulocytes # (auto) 0.02 K/uL (0.00-0.02); Immature Granulocytes % (auto) 0.2 %; Lymphocytes % (auto) 6.5 %; Mean Corpuscular Hemoglobin 31.3 pg (25-34); Mean Platelet Volume 10.2 fL (7.4-10.4); Monocytes # (auto) 0.93 K/uL (0.11-0.59); Monocytes % (auto) 7.5 %; Neutrophils # (auto) 10.59 K/uL (1.4-6.5); Neutrophils % (auto) 85.5 %; Platelet Count 153 K/uL (130-400); RDW Coefficient of Variation 12.8 % (11.5-14.5); RDW Standard Deviation 45.5 fL (36.4-46.3); Red Blood Count 3.61 M/uL (4.7-6.1); White Blood Count 12.37 K/uL (4.8-10.8)
[2020-02-02 12:33] LABS: Mean Corpuscular Hgb Conc 32.3 g/dL (32-36)
--- NOTE | 2020-02-02 12:37 | Anesthesiology Progress Note ---
Date of Service February 02, 2020 Anesthesia Post Procedure Vital Signs Vital Signs: Temp Pulse Pulse Resp BP BP Pulse Ox 02/02/20 12:35 78 16 104/71 96 02/02/20 12:25 36.6 C 81 16 128/75 96 02/02/20 12:15 84 16 126/66 96 02/02/20 12:05 77 16 108/73 97 02/02/20 11:55 88 16 92/68 L 98 02/02/20 11:48 36.6 C 90 16 99/66 L 94 02/02/20 06:02 36.8 C 67 20 164/100 H 98 Transfer of Care Handoff Completed per policy Notes Mental Status: alert / awake / arousable and participated in evaluation Patient Amnestic to Procedure: Yes Nausea / Vomiting: adequately controlled Pain: adequately controlled Airway Patency, RR, SpO2: stable & adequate BP & HR: stable & adequate Hydration State: stable & adequate Anesthetic Complications: no major complications apparent
[2020-02-02 12:46] LABS: BUN Creatinine Ratio 10.5 (10-20); Calcium 8.5 mg/dl (8.5-10.1); Creatinine Clr Calc Pharmacy 58.7 ml/min; Est GFR (African American) 58.3; Est GFR (Non-African American) 50.3; Potassium 4.2 mmol/L (3.5-5.1)
[2020-02-02] MEDS ORDERED: oxyCODONE HCL IR 5 MG TAB (IMMEDIATE RELEASE) PO PRN ×2 (13:36)
[2020-02-02] MEDS ORDERED: MoRPHine SULFATE 4 MG/ML 1 ML CARP\\VIAL IV PRN (13:36)
[2020-02-02] MEDS ORDERED: MoRPHine SULFATE 10 MG/ML CARP/VIAL IV PRN (13:36)
[2020-02-02] MEDS: LACTATED RINGER'S 1,000 ML IV SCH ×2 (14:07→23:35)
[2020-02-02] MEDS: ACETAMINOPHEN 1,000 MG/100 ML VIAL IV SCH ×2 (14:07→22:07)
--- NOTE | 2020-02-02 14:42 | Hospitalist Consultation ---
Date of Consultation February 02, 2020 Assessment & Plan (1) Status post nephrectomy: Status post robotic left laparoscopic partial nephrectomy on 02/02/2020 Denies any significant symptoms Management will be as per neurologist Monitor for hematuria and also H&H Acute on chronic kidney disease stage III Creatinine has went up to 1.43 from 1.28 on We will monitor PRP (2) Renal mass: Incidental diagnosis of renal mass As above (3) History of testicular cancer: Status post orchiectomy No acute issues (4) HTN (hypertension): Blood pressure seems to be controlled and continue with current medications (5) 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 DO Attending Physician: Valentín Zuñiga II, DO History of Present Illness He is a 69-year old male with significant past medical history including CAD status post angioplasty with stent, hypertensive kidney disease stage III with renal artery stenosis, type 2 diabetes, history of IVC thrombosis, hypertension, hyperlipidemia , hypothyroidism and recent diagnosis of left upper pole renal mass apparently underwent laparoscopic left partial nephrectomy today. He has been complaining of some discomfort at the operation site and in the abdomen but denies any nausea and or vomiting. Denies any hematuria. No chest pain and/or palpitation or shortness of breath. No headache and no blurred vision no numbness and or tingling in the extremities. Allergies Allergy/AdvReac Type Severity Reaction Status Date / Time No Known Allergies Allergy Unknown Verified 02/02/20 05:54 Home Medications Home Medications Medication Instructions Recorded Confirmed Type ascorbic acid (vitamin C) [Vitamin 1 g PO QAM 10/19/19 02/02/20 History C] aspirin 81 mg PO QAM 10/19/19 02/02/20 History buspirone 10 mg PO BID 10/19/19 02/02/20 History calcium carbonate-vitamin D3 1 tab PO QAM 10/19/19 02/02/20 History [Os-Rafael 500 + D3] carvedilol 12.5 mg PO BID 10/19/19 02/02/20 History cyanocobalamin (vitamin B-12) 1,000 mcg PO QAM 10/19/19 02/02/20 History [Vitamin B-12] diltiazem HCl 240 mg PO QAM 10/19/19 02/02/20 History levothyroxine 100 mcg PO QAM 10/19/19 02/02/20 History quinapril 40 mg PO QAM 10/19/19 02/02/20 History warfarin 7.5 mg PO 3XWK 01/16/20 02/02/20 History warfarin 10 mg PO 4XWK 01/16/20 02/02/20 History enoxaparin [Lovenox] 100 mg SUBCUT DAILY 02/02/20 02/02/20 History Patient History Medical History (Updated 02/02/20 @ 14:47 by Kika Santiago MD) Anxiety and depression CAD (coronary artery disease) 02/2014-[facility] to RCA Dyslipidemia History of asthma as child History of thrombosis of vena cava IVC thombosis- on warfarin HTN (hypertension) Hx of lymphoma Hx of testicular cancer Hypothyroidism Migraine Myocardial Infarction 2013 Osteoarthritis Prediabetes Renal artery stenosis Renal cyst left Sleep apnea CPAP Surgical History H/O arthroscopy of shoulder right H/O hand surgery right hand (3rd/4th digit) partial amputation History of cataract surgery R/T History of colonoscopy History of heart artery stent stent x1 (2013) History of open reduction and internal fixation (ORIF) procedure R/L FEMUR History of orchiectomy LEFT Family History Mother Lung cancer Father Hypertension Social History Smoking Status: Never smoker Second Hand Exposure: No; Do You Dip or Chew Tobacco: Yes (1 can/week- advised NPO AM DOS); Tobacco Cessation Education Requested by Patient: No Hx Alcohol Use: Yes Alcohol type: beer Hx Substance Use: No Preferred Language: French Communication Ability: Effective 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 Beliefs That Will Affect Care: None Current Living Situation: Spouse Feels Safe at Home: Yes Safety Concerns: Feels Safe At This Time Assistive Devices: CPAP and Glasses Assistive Devices Comment: READING GLASSES Review of Systems Review of Systems: All systems reviewed & are unremarkable except as noted in HPI & below Physical Exam Physical Exam: Lying in bed with some discomfort Constitutional: well developed, well nourished, + acute distress (Abdominal discomfort), + ill appearing and + obese Eyes: PERRL, conjunctivae normal, anicteric sclerae ENMT: external ear and nose normal, oropharynx normal Neck: trachea midline, no thyromegaly Respiratory: normal respiratory effort; no respiratory distress Auscultation: lungs clear to auscultation bilaterally Cardiovascular: Rate/Rhythm: regular rate and regular rhythm Heart Sounds: no murmur Gastrointestinal (Abdomen): Inspection/Auscultation: + abdomen distended and normal bowel sounds Percussion/Palpation: + abdomen tender and abdomen soft; no guarding Musculoskeletal: No acute arthritis in any joint Neurologic: moves all extremities; no focal motor deficits Psychiatric: A+Ox3, euthymic affect Lymphatic: no cervical or axillary lymphadenopathy Results & Data Results & Data ([facility]) Vital Signs (Past 12 Hours) Vital Signs Temp Pulse Pulse Pulse Resp BP BP 02/02/20 14:24 36.3 C L 95 H 16 113/78 02/02/20 13:43 36.4 C L 86 16 110/76 02/02/20 13:15 37.0 C 83 14 128/81 02/02/20 13:00 72 12 129/74 02/02/20 12:45 74 12 129/69 02/02/20 12:35 78 16 104/71 02/02/20 12:25 36.6 C 81 16 128/75 02/02/20 12:15 84 16 126/66 02/02/20 12:05 77 16 108/73 02/02/20 11:55 88 16 92/68 L 02/02/20 11:48 36.6 C 90 16 99/66 L 02/02/20 06:02 36.8 C 67 20 164/100 H Pulse Ox 02/02/20 14:24 99 02/02/20 13:43 100 02/02/20 13:15 98 02/02/20 13:00 96 02/02/20 12:45 94 02/02/20 12:35 96 02/02/20 12:25 96 02/02/20 12:15 96 02/02/20 12:05 97 02/02/20 11:55 98 02/02/20 11:48 94 02/02/20 06:02 98 Laboratory Results Short CBC 02/02/20 Range/Units 12:08 WBC 12.37 H (4.8-10.8) K/uL Hgb 11.3 L (14.0-18.0) g/dL Hct 35.0 L (42-52) % Plt Count 153 (130-400) K/uL BMP 02/02/20 12:08 Sodium 140 Potassium 4.2 Chloride 108 H Carbon Dioxide 27 BUN 15 Creatinine 1.43 H Glucose 132 H Calcium 8.5 Medications Administered Current Inpatient Medications Ascorbic Acid (Ascorbic Acid 500 Mg Tab) 1,000 mg PO QAM [facility] Stop: 03/04/20 08:59 Buspirone HCl (Buspirone 5 Mg Tab) 10 mg PO BID [facility] Stop: 03/03/20 20:59 Carvedilol (Carvedilol 12.5 Mg Tab) 12.5 mg PO BID [facility] Stop: 03/03/20 20:59 Cyanocobalamin (Cyanocobalamin 500 Mcg Tablet (Vitamin B-12)) 1,000 mcg PO QAM [facility] Stop: 03/04/20 08:59 Diltiazem HCl (Diltiazem Hcl 240 Mg Capcr) 240 mg PO QAM [facility] Stop: 03/04/20 08:59 Enalapril Maleate (Enalapril Maleate 10 Mg Tab) 40 mg PO QAM [facility]; Protocol Stop: 03/04/20 08:59 Heparin Sodium (Porcine) (Heparin Sod 5,000 Unit/0.5 Ml Vial) 5,000 units SQ Q12 [facility] Stop: 03/04/20 08:59 Lactated Ringer's (Lr) 1,000 mls @ 100 mls/hr IV .Q10H [facility] Stop: 03/03/20 13:35 Last Admin: 02/02/20 14:07 Dose: 100 mls/hr Documented by: Cefazolin Sodium (Ancef 2000mg) 2,000 mg in 15 mls @ 3.75 mls/min IV Q8H [facility]; Protocol Stop: 02/02/20 23:33 Acetaminophen (Ofirmev) 1,000 mg in 100 mls @ 400 mls/hr IV Q8 [facility] Stop: 02/05/20 13:59 Last Admin: 02/02/20 14:07 Dose: 400 mls/hr Documented by: Levothyroxine Sodium (Levothyroxine Sodium 100 Mcg Tablet) 100 mcg PO DAILYBB [facility] Stop: 03/04/20 06:29 Morphine Sulfate (Morphine Sulfate 4 Mg/Ml 1 Ml Carp\Vial) 1 mg IV Q3H PRN PRN Reason: MODERATE Pain (scale 4,5,6) Stop: 02/16/20 13:35 Morphine Sulfate (Morphine Sulfate 10 Mg/Ml Carp/Vial) 2 mg IV Q3H PRN PRN Reason: SEVERE Pain (scale 7,8,9,10) Stop: 02/16/20 13:35 Multivitamins/Minerals (Calcium 600mg + Vit D 400 Iu Tab) 1 tab PO QAM [facility] Stop: 03/04/20 08:59 Ondansetron HCl (Ondansetron Inj 2 Mg/Ml 2 Ml Vial) 4 mg IV Q6H PRN PRN Reason: Nausea And Vomiting Stop: 03/03/20 13:35 Oxycodone HCl (Oxycodone Hcl Ir 5 Mg Tab (Immediate Release)) 5 mg PO Q4H PRN PRN Reason: MODERATE Pain (scale 4,5,6) Stop: 02/16/20 13:35 Oxycodone HCl (Oxycodone Hcl Ir 5 Mg Tab (Immediate Release)) 10 mg PO Q4H PRN PRN Reason: severe pain (scale 7-10) Stop: 02/16/20 13:35
[2020-02-02] MEDS ORDERED: GLUCOSE 10 TABS/TUBE PO PRN (15:00)
[2020-02-02] MEDS ORDERED: DEXTROSE 50% 50 ML SYRINGE IV PRN (15:00)
[2020-02-02] MEDS ORDERED: GLUCOSE 40% GEL 15 GM TUBE PO PRN (15:00)
[2020-02-02] MEDS ORDERED: GLUCAGON FOR INJ 1 MG VIAL IM PRN (15:00)
[2020-02-02] MEDS ORDERED: CARBOHYDRATES FOR HYPOGLYCEMIA PO PRN (15:00)
[2020-02-02] MEDS ORDERED: MoRPHine SULFATE 2 MG/ML CARP IV PRN ×2 (15:30)
[2020-02-02] MEDS ORDERED: WARFARIN SOD 7.5 MG TAB PO SCH (16:00)
[2020-02-02] MEDS: Heparin IV Low Dose *NO* Bolus IV SCH ×4 (16:20→16:51)
[2020-02-02] MEDS: HEPARIN SODIUM/DEXTROSE 25,000 UNITS/500 ML BAG IV SCH ×2 (16:20→16:43)
[2020-02-02] MEDS: ceFAZolin 2000MG 2,000 MG/15 ML SYR IV SCH ×2 (16:23→23:35)
[2020-02-02] MEDS: INSULIN ASPART 100 UNITS/ML 3 ML PEN SC SCH ×2 (18:12→21:19)
[2020-02-02] MEDS: busPIRone 5 MG TAB PO SCH (21:18)
[2020-02-02] MEDS: carvediloL 12.5 MG TAB PO SCH (21:18)
[2020-02-02 23:25] LABS: Partial Thromboplastin Ratio 1.9
[2020-02-02 23:33] LABS: Partial Thromboplastin Time 54.4 Seconds (21.0-31.0)
[2020-02-03] MEDS: ACETAMINOPHEN 1,000 MG/100 ML VIAL IV SCH (05:26)
[2020-02-03] MEDS ORDERED: LEVOTHYROXINE SODIUM 100 MCG TABLET PO SCH (06:30)
[2020-02-03] MEDS ORDERED: NALOXONE HCL 0.4 MG/1 ML VIAL/CARP ONE (06:54)
--- NOTE | 2020-02-03 07:11 | Communication Note ---
Date of Service: February 03, 2020 CODE NORBERTO called around 6:40 AM. As per RN, patient complaining of vague abdominal pain around 3:30 AM. Given oxycodone with incomplete relief of pain as per RN. Around 6:30 AM, patient noted to be disoriented. BSGs just 300s. Patient found to be unresponsive by staff, head slumped over around 6:40 AM. CODE NORBERTO called. CPR/ACLS initiated. Initial rhythm PEA. Epinephrine x 4 doses given Bicarb 1 dose given. Narcan 1 dose given. Endotracheal intubation done at bedside by Dr. Guerra (ER provider). Code subsequently terminated after almost 20 minutes of active resuscitation measures. Patient pronounced at 6:59 AM. Hemoglobin this a.m. noted to be 7 from 11.3 yesterday. Possible reasons for sudden demise/cardiac arrest include : Postop hemorrhage (ICH, intra-abdominal) given postop anemia in the setting of ongoing IV anticoagulation for history IVC thrombosis. [place], malignant arrhythmia (hx CAD as per records) application operations engineer to be notified given patient within [address] Zuñiga (patient surgeon/primary service) updated of developments. Attempted to contact patient's family over the phone to give update. (Patient on the way to the hospital as per RN after being notified of cardiac arrest.) No answer.
[2020-02-03 07:13] LABS: Mean Corpuscular Hemoglobin 31.5 pg (25-34); Mean Corpuscular Hgb Conc 31.8 g/dL (32-36); Mean Corpuscular Volume 99.1 fL (80-100); Platelet Count 127 K/uL (130-400); RDW Standard Deviation 47.2 fL (36.4-46.3); Red Blood Count 2.22 M/uL (4.7-6.1); White Blood Count 10.86 K/uL (4.8-10.8)
--- NOTE | 2020-02-03 07:17 | Emergency Department Note ---
ED Visit Note Endotracheal Intubation Indication: Code blue. Called to bedside to assist with airway in code blue. Patient receiving compressions and ACLS protocols were actively taking place. Suction, airway equipment, respiratory equipment, and appropriate personnel were prepared prior to the initiation of the procedure. The airway was easily visualized utilizing a Quincy scope. A 7.5 size ETT tube was placed atraumatically to 23 cm at the lip using standard technique. The cuff inflated without signs of malfunction. There were bilateral breath sounds, positive colormetric change, no gastric sounds. There were no complications. .
--- NOTE | 2020-02-03 07:26 | Death Pronouncement Note ---
Date of Service February 03, 2020 Pronouncement Note Admission Date Admission Date: February 02, 2020 Date and Time of Date of : 02/03/20 Time of : 06:59 PCOD Preliminary cause of : Anemia Contributing Factors (1) Status post nephrectomy: (2) Renal mass: (3) History of testicular cancer: (4) HTN (hypertension): (5) IVC thrombosis: Contributing factors: Probable renal malignancy status post surgery, history of IVC thrombosis, CAD (6) Diet-controlled type 2 diabetes mellitus: (7) Hypothyroidism: (8) CAD (coronary artery disease): Summary Additional details: CODE NORBERTO called around 6:40 AM. As per RN, patient complaining of vague abdominal pain around 3:30 AM. Given oxycodone with incomplete relief of pain as per RN. Around 6:30 AM, patient noted to be disoriented. BSGs just 300s. Patient found to be unresponsive by staff, head slumped over around 6:40 AM. CODE NORBERTO called. CPR/ACLS initiated. Initial rhythm PEA. Epinephrine x 4 doses given Bicarb 1 dose given. Narcan 1 dose given. Endotracheal intubation done at bedside by Dr. Guerra (ER provider). Code subsequently terminated after almost 20 minutes of active resuscitation measures. Patient pronounced at 6:59 AM. Hemoglobin this a.m. noted to be 7 from 11.3 yesterday. Possible reasons for sudden demise/cardiac arrest include : Postop hemorrhage (ICH, intra-abdominal) given postop anemia in the setting of ongoing IV anticoagulation for history IVC thrombosis. [place], malignant arrhythmia (hx CAD as per records) clinical lab clerk to be notified given patient within [address] Zuñiga (patient surgeon/primary service) updated of developments. Attempted to contact patient's family over the phone to give update. (Patient on the way to the hospital as per RN after being notified of cardiac arrest.) No answer. Additional Data Confirmation of : no pulse, no respirations, no heart sounds and pupils fixed and dilated Family: attempt made Attending/PCP notified?: Yes Attending physician: Valentín Zuñiga, II, DO Was code activated?: Yes Autopsy requested?: Yes branch examiner notified?: Yes
[2020-02-03 07:36] LABS: INR 1.4 (0.9-1.1); Partial Thromboplastin Ratio 4.9; Prothrombin Time 14.5 Seconds (9.0-12.0)
[2020-02-03 07:38] LABS: BUN Creatinine Ratio 7.5 (10-20); Calcium 8.2 mg/dl (8.5-10.1); Creatinine Clr Calc Pharmacy 28.7 ml/min; Est GFR (African American) 24.5; Est GFR (Non-African American) 21.1
[2020-02-03 07:39] LABS: Partial Thromboplastin Time 137.5 Seconds (21.0-31.0)
[2020-02-03 07:55] LABS: Basophils # (auto) 0.01 K/uL (0-0.2); Basophils % (auto) 0.1 %; Eosinophils # (auto) 0.01 K/uL (0-0.5); Eosinophils % (auto) 0.1 %; Immature Granulocytes # (auto) 0.06 K/uL (0.00-0.02); Immature Granulocytes % (auto) 0.6 %; Lymphocytes # (auto) 2.95 K/uL (1.2-3.4); Lymphocytes % (auto) 27.2 %; Monocytes # (auto) 1.53 K/uL (0.11-0.59); Monocytes % (auto) 14.1 %; Neutrophils % (auto) 57.9 %
--- NOTE | 2020-02-03 08:13 | Urology Progress Note ---
Date of Service February 03, 2020 Assessment & Plan (1) Cardiac arrest: Patient went into Cardiac Arrest morning of 02/03/2020. Was found to be hyperglycemic and during assessment by nursing went unresponsive. Code was called and immediately began resuscitation. Patient never regained a normal heart rate and was pronounced by the code team. Patient's family arrived at approx 8am and I meet with them at bedside. Spoke with family ( and daughter). All questions answered to the best from the available information. Family is spending time with the and we will assist with further arrangements as needed. (2) Status post nephrectomy: Admission and Anticipated Discharge Date Admission Date: February 02, 2020 Subjective Patient went into Cardiac Arrest morning of 02/03/2020. Was found to be hyperglycemic and during assessment by nursing went unresponsive. Code was called and immediately began resuscitation. Patient never regained a normal heart rate and was pronounced by the code team. Patient's family arrived at approx 8am and I meet with them at bedside. Review of Systems Review of Systems: Other Physical Exam Physical Exam: Patient . Results & Data ([facility]) Vital Signs (Past 12 Hours) Vital Signs Temp Pulse Resp BP Pulse Ox 02/03/20 03:15 36.8 C 95 H 16 106/72 98 02/02/20 23:20 36.4 C L 96 H 16 101/67 96 02/02/20 21:00 36.5 C 81 18 103/69 94 PG Care Time/CCT Total # of Minutes Spent Total Time Spent with Patient: Total time spent is greater than 50% in coordination of care (as documented) at patient's floor/unit and/or counseling patient: Coding Level of Care Code None Diagnoses Cardiac arrest I46.9 Status post nephrectomy Z90.5
[2020-02-03] MEDS ORDERED: dilTIAZem HCL 240 MG CAPCR PO SCH (09:00)
[2020-02-03] MEDS ORDERED: HEPARIN SOD 5,000 UNIT/0.5 ML VIAL SQ SCH (09:00)
[2020-02-03] MEDS ORDERED: ASCORBIC ACID 500 MG TAB PO SCH (09:00)
[2020-02-03] MEDS ORDERED: CALCIUM 600MG + VIT D 400 IU TAB PO SCH (09:00)
[2020-02-03] MEDS ORDERED: CYANOCOBALAMIN 500 MCG TABLET (VITAMIN B-12) PO SCH (09:00)
[2020-02-03] MEDS ORDERED: ENALAPRIL MALEATE 10 MG TAB PO SCH (09:00)
[2020-02-03] MEDS: INSULIN ASPART 100 UNITS/ML 3 ML PEN SC SCH (09:29)
[2020-02-03] MEDS: busPIRone 5 MG TAB PO SCH (09:29)
[2020-02-03] MEDS: carvediloL 12.5 MG TAB PO SCH (09:30)
[2020-02-03] MEDS: LACTATED RINGER'S 1,000 ML IV SCH (09:30)
--- NOTE | 2020-02-10 17:41 | Discharge Summary ---
Date of Service February 10, 2020 Admission HPI Per Admitting Provider See H&P Admission Exam Per Admitting Provider See H&P Principal Diagnosis Renal Mass Presumed Renal Cell Carcinoma Discharge Exam Patient Discharge Data Allergies Allergy/AdvReac Type Severity Reaction Status Date / Time No Known Allergies Allergy Unknown Verified 02/02/20 05:54 Consultations 02/02/20 13:36 Consult Internal Medicine Routine Procedures Performed Operation Date: 02/02/20 07:30 Actual Procedures p Robotic Left Laparoscopic Partial Nephrectomy(Left) - Valentín Zuñiga DO Hospital Course (1) Cardiac arrest: Patient went into Cardiac Arrest morning of 02/03/2020. Was found to be hyperglycemic and during assessment by nursing went unresponsive. Code was called and immediately began resuscitation. Patient never regained a normal heart rate and was pronounced by the code team. Patient's family arrived at approx 8am and I meet with them at bedside. Spoke with family ( and daughter). All questions answered to the best from the available information. Family is spending time with the and we will assist with further arrangements as needed. (2) Status post nephrectomy: Total Time Total Time Spent Total Time Spent (In Minutes): 10 minutes Total Time Includes: Examination of the Patient, Discharge Planning, Medication Reconciliation and Communication With Other Providers Discharge Plan Discharge Items Patient Disposition: Discharge Diagnosis: Renal Mass Addtl Attending Provider Instructions: Patient Coding Level of Care Code D/C Day Management <30 mins Diagnoses Cardiac arrest I46.9 Status post nephrectomy Z90.5
--- NOTE | 2020-02-14 09:11 | Coding Query ---
CODING QUERY To promote full compliance with coding requirements relating to patient care, provider participation is requested in all cases of tire spotter uncertainty. Please assist us with the question(s) below: Coding Question(s): Please specify below, regarding the procedure for Partial Nephrectomy done on 02/02/20. ( ) Partial Nephrectomy done for Diagnostic purpose ( X) Partial Nephrectomy done for both Diagnostic and Therapeutic purposes ( ) Other: Please Specify Physician's Response(s): Thank you Laurel Parson Principal Diagnosis: "that condition established after study, to be chiefly responsible for occasioning the admission of the patient to the hospital for care." Co-Existing Principal Diagnosis: "when two or more diagnoses equally meet the criteria for principal diagnosis as determined by the circumstances of admission, diagnostic work up, and/or therapy provided, and the Alphabetic Index, Tabular List, or another coding guideline does not provide sequencing direction, any one of the diagnoses may be sequenced first." "When the physician has documented what appears to be a current diagnosis in the body of the record, but has not included the diagnosis in the final diagnostic statement, the physician should be asked whether the diagnosis should be added." ([facility] QTR90. p3-4) SHELBY
--- NOTE | 2020-02-14 09:26 | Coding Query ---
CODING QUERY To promote full compliance with coding requirements relating to patient care, provider participation is requested in all cases of cotton feeder uncertainty. Please assist us with the question(s) below: Coding Question(s): 1. IVC Thrombosis is documented on 02/03/20 Pronouncement Note with history of IVC Thrombosis. Please specify below, in your clinical opinion. ( ) IVC Thrombosis occurred during this admit ( x ) History only of IVC Thrombosis ( ) Other: Please specify 2. The 02/03/20 Pronouncement Note documents, "Possible reasons for sudden demise/cardiac arrest include : Postop hemorrhage (ICH, intra-abdominal) given postop anemia in the setting of ongoing IV anticoagulation for history IVC thrombosis. TN, malignant arrhythmia (hx CAD as per records)". Please answer questions A & B & C below, in your clinical opinion: A. Please Specify below, regarding ICH: ( ) ICH is intracerebral hemorrhage as a possible Postoperative Complication ( ) ICH is intracerebral hemorrhage that is NOT Postoperative Complication. Please Specify further below: ( ) Unspecified etiology ( ) likely due to IV anticoagulation ( ) Other: Please Specify ( x) ICH is Other, Please Specify___possible reason for sudden demise given altered mental status, ongoing IV anticoag, postop anemia B. Please Specify below, regarding intra-abdominal hemorrhage: ( ) Intra-abdominal hemorrhage as a possible Postoperative Complication ( ) Intra-abdominal hemorrhage that is NOT Postoperative Complication. Please Specify further below: ( ) Unspecified etiology ( ) likely due to IV anticoagulation ( x ) Other: Please Specify possible reason for sudden demise given abdominal pain, ongoing IV anticoag, postop anemia C. Please Specify below, regarding TN. ( ) TN, likely Postoperative Complication ( ) TN, Not a Postoperative Complication ( x ) TN, Other, Please Specify possible reason for sudden demise given cardiac hx ALL 3 ENTITIES ABOVE ARE JUST POSSIBILITIES. Physician's Response(s): Thank you Laurel Parson Principal Diagnosis: "that condition established after study, to be chiefly responsible for occasioning the admission of the patient to the hospital for care." Co-Existing Principal Diagnosis: "when two or more diagnoses equally meet the criteria for principal diagnosis as determined by the circumstances of admission, diagnostic work up, and/or therapy provided, and the Alphabetic Index, Tabular List, or another coding guideline does not provide sequencing direction, any one of the diagnoses may be sequenced first." "When the physician has documented what appears to be a current diagnosis in the body of the record, but has not included the diagnosis in the final diagnostic statement, the physician should be asked whether the diagnosis should be added." ([facility] 2 QTR90. p3-4) SHELBY
--- NOTE | 2020-02-14 09:27 | Coding Query ---
ANEMIA To promote full compliance with coding requirements relating to patient care, physician participation is requested in all cases of turntable man uncertainty. Please assist us with the question(s) below: Coding Question(s): The record reflects the following clinical findings: Anemia If these findings are indicative of anemia, please specify the known or suspected type by placing an "X" within the parenthesis (x). If other, please document type. Examples are: ( x) Acute blood loss anemia (x ) Acute Postoperative blood loss anemia ( x) Acute postoperative anemia due to dilutional fluids ( ) Chronic blood loss anemia ( ) Anemia of chronic disease ( ) Aplastic anemia ( ) Anemia due to renal disease ( ) Anemia in neoplastic disease ( ) Iron deficient anemia ( ) Anemia, unspecified or other ( ) Other: (please specify) ( ) Unable to determine Thank you Laurel RYAN
== END 2020-02-03 07:00 | disposition expired | DRG 656 ==
LOC: ASU 05:18 → 3W 11:59